=== PATIENT | female | born 1955 | race Caucasian/White ===

== ENCOUNTER 2017-01-06 07:00 | Outpatient (CLI) | payer MEDICAID ==
[~2017-01-06] VITALS: Ht 162.6 cm; Wt 93.2 kg
[~2017-01-06 07:00] MED LIST: ADVIL200 MG PO; ALBUTEROL0.63 MG/3 INH; CELEXA20 MG PO; GLUCOPHAGE500 MG PO; HYZAAR 100-25 T1 TAB PO; HYZAAR 50-12.51 TAB PO; VENTOLIN HFA18 GM INH; ZOCOR20 MG PO
[2017-01-06 08:05] VITALS: Ht 162.6 cm; Wt 93.2 kg
[2017-01-06 08:44] LABS: BASOPHILS 0.3 % (0-2); EOSINOPHILS 2.7 % (0-7); HEMATOCRIT 47.6 % (36.0-48.0); HEMOGLOBIN 16.1 g/dL (12-16); IMMATURE GRANULOCYTES 0.5 % (0-5); LYMPHOCYTES 23.9 % (15-50); MCH 31.5 pg (26.0-34.0); MCHC 33.8 g/dL (31.0-37.0); MCV 93.2 fL (80.0-100.0); MEAN PLATELET VOLUME 10.3 fL (7.4-10.4); MONOCYTES 6.2 % (2-11); NEUTROPHILS 66.4 % (40-80); PLATELET COUNT 218 10x3/uL (130-400); RBC 5.11 10x6/uL (4.00-5.40); RDW 13.9 % (11.5-14.5); WBC 8.9 10x3/uL (4.8-10.8)
[2017-01-06 08:55] LABS: APTT 26.8 SECONDS (22.8-39.4); INR 0.86 (0.85-1.17); PROTIME 11.6 SECONDS (11.6-15.0)
[2017-01-06 08:57] LABS: CALC OSMOLALITY 276 mosm/kg (275-300); CALCIUM 9.8 mg/dL (8.5-10.1); CARBON DIOXIDE 32.6 mmol/L (21.0-32.0); CHLORIDE - SERUM 103 mmol/L (98-107); CREATININE - SERUM 0.6 mg/dL (0.6-1.3); GLUCOSE 107 mg/dL (74-106); POTASSIUM - SERUM 3.7 mmol/L (3.5-5.1); SODIUM 139 mmol/L (136-145); UREA NITROGEN 11 mg/dL (7-18); eGFR NON AFRICAN AMERICAN > 90 mL/min (90-120)
--- NOTE | 2017-01-06 19:10 | NUR ---
1020--VITAL SIGNS CHARTED ON POST PROCEDURE VITAL SIGN SHEET ON CHART. AUBREE BAKER
--- NOTE | 2017-01-06 19:14 | NUR ---
1400--DISCHARGE INSTRUCTIONS GIVEN, PT VERBALIZES UNDERSTANDING. PT OFF UNIT VIA JOVANNA. AUBREE BAKER
== END 2017-01-06 14:15 | disposition home or self-care (01) ==
LOC: D.OPS 07:00 → D.CT 13:00 → D.OPS 14:15
PROVIDERS: Radiology Diagnostic Radiology
DX: R91.8 Other nonspecific abnormal finding of lung field (principal); Z85.3 Personal history of malignant neoplasm of breast; Z01.812 Encounter for preprocedural laboratory examination